=== PATIENT | male | born 1955 | race Caucasian/White ===

== ENCOUNTER 2018-02-25 17:37 | Emergency (ER) | payer BC ==
[~2018-02-25] VITALS: Ht 182.9 cm; Wt 101.2 kg
[~2018-02-25 17:37] MED LIST: ATOR40TA PO; BAYE325T3 PO; ENAL2.5 PO; METO25 PO; NITR0.4S SL; PROM25TA5 PO
[2018-02-25 17:55] VITALS: BP 171/79; PULSE 42; RESP 18; TEMP 98.1; O2SAT 98
[2018-02-25 18:15] VITALS: BP 140/69; PULSE 77; RESP 16; O2SAT 96
[2018-02-25] MEDS ORDERED: ASPI-183 PO (18:17)
[2018-02-25] MEDS ORDERED: ATOR10TA15 PO (18:17)
[2018-02-25] MEDS ORDERED: ENAL2.5T PO (18:17)
[2018-02-25 18:25] VITALS: O2SAT 97
[2018-02-25] MEDS ORDERED: SODIUM CHLORIDE 0.9% FLUSH 10 ML FLUSH IVF PRN (18:30)
[2018-02-25 18:31] LABS: AUTOMATED NEUTROPHIL # 3.7 TH/MM3 (1.8-7.7); BASOPHIL # 0.3 TH/MM3 (0-0.2); BASOPHIL % 2.9 % (0.0-2.0); EOSINOPHIL # 0.2 TH/MM3 (0-0.4); EOSINOPHIL % 2.1 % (0.0-4.0); HEMATOCRIT 45.8 % (39.0-51.0); HEMOGLOBIN 15.2 GM/DL (13.0-17.0); LYMPH % 37.7 % (9.0-44.0); LYMPHOCYTE # 3.3 TH/MM3 (1.0-4.8); MEAN CELL VOLUME 92.7 FL (80.0-100.0); MEAN CORPUSCULAR HEMOGLOBIN 30.8 PG (27.0-34.0); MEAN CORPUSCULAR HGB CONC 33.3 % (32.0-36.0); MEAN PLATELET VOLUME 8.2 FL (7.0-11.0); MONO % 13.6 % (0.0-8.0); MONOCYTE # 1.2 TH/MM3 (0-0.9); NEUT % 43.7 % (16.0-70.0); PLATELET COUNT 200 TH/MM3 (150-450); RED BLOOD COUNT 4.93 MIL/MM3 (4.50-5.90); RED CELL DISTRIBUTION WIDTH 12.9 % (11.6-17.2); WHITE BLOOD COUNT 8.7 TH/MM3 (4.0-11.0)
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
[2018-02-25 18:50] VITALS: BP 149/81; PULSE 68; RESP 14; O2SAT 95
[2018-02-25 18:52] LABS: CHLORIDE 105 MEQ/L (98-107); SODIUM (NA) 138 MEQ/L (136-145)
--- NOTE | 2018-02-25 18:53 | RADRPT ---
EXAM DATE: 02/25/2018 6:49 PM EDT AGE/SEX: 62 years / Male INDICATIONS: Dizziness, weakness for 1 hour CLINICAL DATA: This is the patient's initial encounter. Patient reports that signs and symptoms have been present for 1 day and indicates a pain score of 0/10. MEDICAL/SURGICAL HISTORY: Congestive heart failure. Hypertension. Pacemaker. COMPARISON: [facility] [place], 09/25[place]. . FINDINGS: Frontal view of the chest demonstrates the lungs to be symmetrically aerated. No evidence of mass, in filtrate, or pneumothorax. Cardiac pacer and lead stable in position. The heart is normal in size, st able configuration from prior. CONCLUSION: The lungs are clear. Electronically signed by: Sergio Fox MD 02/25/2018 6:52 PM EDT
[2018-02-25 18:55] LABS: CALCIUM 8.7 MG/DL (8.5-10.1)
[2018-02-25 18:56] LABS: BICARBONATE 26.2 MEQ/L (21.0-32.0); BLOOD UREA NITROGEN 10 MG/DL (7-18); GLUCOSE,RANDOM 128 MG/DL (74-106); MAGNESIUM 2.3 MG/DL (1.5-2.5)
[2018-02-25 18:57] LABS: PROTHROMBIN TIME - PATIENT 10.2 SEC (9.8-11.6)
[2018-02-25 18:59] LABS: ALT (GPT) 29 U/L (12-78); AST (GOT) 21 U/L (15-37); GLOMERULAR FILTRATION RATE 61 ML/MIN (>89)
[2018-02-25 19:00] LABS: TOTAL BILIRUBIN ADULT 0.4 MG/DL (0.2-1.0); TOTAL PROTEIN 7.6 GM/DL (6.4-8.2)
[2018-02-25 19:02] LABS: ALKALINE PHOSPHATASE 106 U/L (45-117)
[2018-02-25 19:04] LABS: TROPONIN I LESS THAN 0.02 NG/ML (0.02-0.05)
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
[2018-02-25 20:28] VITALS: BP 155/87; PULSE 55; RESP 18; O2SAT 97
--- NOTE | 2018-02-26 15:19 | EKG ---
Date Performed: 02/25/2018 Time Performed: 18:10:33 PTAGE: 62 years EKG: Sinus rhythm WITH FREQUENT VENTRICULAR PREMATURE COMPLEXES IN A BIGEMINAL PATTERN NONSPECIFIC T-WAVE ABNORMALITY ABNORMAL ECG Compared to PREVIOUS TRACING , axis is no longer leftward and ST-T changes have improved and PVCs are present. PREVIOUS TRACIN09/26/2015 05.43 DOCTOR: Felix Whiteside Interpretating Date/Time 02/26/2018 15:17:36
== END 2018-02-25 21:37 | disposition home or self-care (01) ==
LOC: PHED 17:37
DX: R55 Syncope and collapse (principal); R00.8 Other abnormalities of heart beat; I11.0 Hypertensive heart disease with heart failure; I50.9 Heart failure, unspecified; I25.2 Old myocardial infarction; I25.10 Atherosclerotic heart disease of native coronary artery without angina pectoris; F17.290 Nicotine dependence, other tobacco product, uncomplicated; Z95.5 Presence of coronary angioplasty implant and graft; Z95.810 Presence of automatic (implantable) cardiac defibrillator
CPT/HCPCS: 71045; 80053; 82550; 82552; 83735; 84484; 85025; 85610; 85730; 93005